=== PATIENT | female | born 1960 | race Caucasian/White ===

== ENCOUNTER 2020-12-11 14:06 | Outpatient (REF) | payer OTHER, SELFPAY | END 2020-12-11 14:07 | disposition home or self-care (01) | LOC: HO.LNP 14:06 | PROVIDERS: Visit Provider Hospitalist | DX: J01.90 Acute sinusitis, unspecified (principal); Z20.822 Contact with and (suspected) exposure to COVID-19 | CPT/HCPCS: U0003; U0005 ==